=== PATIENT | female | born 1940 | race Caucasian/White ===

== ENCOUNTER 2016-09-26 11:57 | Inpatient (IN) | payer MEDICARE ==
[~2016-09-26] VITALS: Ht 157.5 cm; Wt 35.6 kg
[2016-09-26 12:10] VITALS: BP_SYST 143
[2016-09-26 13:13] LABS: BASOPHILS # (AUTO) 0.2 K/uL (0.0-0.2); BASOPHILS % (AUTO) 1.4 % (0.0-2.0); EOSINOPHILS % (AUTO) 0.1 % (0.0-4.0); HEMATOCRIT 27.4 % (36-48); HEMOGLOBIN 8.9 g/dL (12.0-16.0); LYMPHOCYTES # (AUTO) 0.6 K/uL (1.0-5.5); LYMPHOCYTES % (AUTO) 5.1 % (20.5-51.5); MEAN CORPUSCULAR HEMOGLOBIN 29 pg (27-31); MEAN CORPUSCULAR HGB CONC 33 % (32-36); MEAN CORPUSCULAR VOLUME 87 fL (79.0-98.0); MONOCYTES # (AUTO) 0.3 K/uL (0.0-1.0); MONOCYTES % (AUTO) 2.7 % (1.7-9.3); NEUTROPHILS # (AUTO) 10.8 K/uL (1.8-7.7); NEUTROPHILS % (AUTO) 90.7 % (40.0-70.0); RED BLOOD CELL COUNT(AUTO) 3.13 MIL/uL (4.2-6.2); RED CELL DISTRIBUTION WIDTH 17.2 % (9.0-15.0); WHITE BLOOD COUNT (AUTO) 11.9 K/uL (4.8-10.8)
[2016-09-26 13:23] LABS: INR 1.1 (0.8-1.2); PROTHROMBIN TIME 11.6 SECS (9.5-12.5)
[2016-09-26 13:30] LABS: PLATELET COUNT (AUTO) 464 K/uL (130-430)
[2016-09-26 13:32] LABS: ANION GAP 6 (5-15); CALCIUM 8.3 mg/dL (8.4-11.0); CHLORIDE 103 mmol/L (98-107); CREATININE 0.87 mg/dL (0.55-1.30); GLUCOSE 175 mg/dL (70-99); POTASSIUM 4.4 mmol/L (3.5-5.1); SODIUM SERUM 135 mmol/L (136-145); UREA NITROGEN, BLOOD 10 mg/dL (8-21)
[2016-09-26 13:37] LABS: ALANINE AMINOTRANSFERASE 16 U/L (12-78); ALBUMIN 1.9 g/dL (3.4-4.8); ASPARTATE AMINOTRANSFERASE 30 U/L (10-37); TOTAL BILIRUBIN 0.2 mg/dL (0.0-1.0); TOTAL PROTEIN, SERUM 7.4 g/dL (6.4-8.3)
[2016-09-26 14:48] LABS: BILIRUBIN,URINE NEGATIVE (NEGATIVE); BLOOD, URINE NEGATIVE (NEGATIVE); CLARITY/URINE CLEAR (CLEAR); COLOR,URINE YELLOW (YELLOW); GLUCOSE,URINE NEGATIVE (NEGATIVE); KETONES,URINE NEGATIVE (NEGATIVE); LEUKOCYTE ESTERASE ,URINE NEGATIVE (NEGATIVE); NITRITE, URINE NEGATIVE (NEGATIVE); PROTEIN URINE NEGATIVE (NEGATIVE)
[2016-09-26 14:55] LABS: BARBITURATE, URINE NEGATIVE (NEG <=200); BENZODIAZEPINE, URINE POSITIVE (NEG <=150); CANNABINOID, URINE NEGATIVE (NEG <=50); COCAINE, URINE NEGATIVE (NEG <=150); METHAMPHETAMINES SCREEN,URINE NEGATIVE (NEG <=500); OPIATE, URINE NEGATIVE (NEG <=100); PHENCYCLIDINE SCREEN,URINE NEGATIVE (NEG <=25); UR TRICYCLIC ANTIDEPRESSANTS NEGATIVE (NEG <=300); URINE AMPHETAMINE NEGATIVE (NEG <=500); URINE METHADONE NEGATIVE (NEG <=200); URINE OXYCODONE SCREEN NEGATIVE (NEG <=100); URINE PROPOXYPHENE SCREEN NEGATIVE (NEG <=300)
[2016-09-26] MEDS ORDERED: ASPIRIN 300 MG/SUPP.RECT SUPP RC ONE (16:00)
[2016-09-26] MEDS ORDERED: IOHEXOL 350 mgI/mL, 150 ML INFUS..BTL IV ONE (17:19)
[2016-09-26] MEDS ORDERED: ENOXAPARIN SODIUM 60 MG/0.6 ML SYRINGE ONE (19:54)
[2016-09-26] MEDS ORDERED: PIPERACILLIN/TAZO 4.5 GM in NS 100 ML IV ONE (20:15)
[2016-09-26] MEDS ORDERED: PIPERACILLIN/TAZOBACTAM 4.5 GM/VIAL (ZOSYN) IV ONE (20:49)
[2016-09-26] MEDS ORDERED: ENOXAPARIN SODIUM 60 MG/0.6 ML SYRINGE SUBCUT ONE (21:00)
[2016-09-26 21:48] LABS: BLOOD GAS BASE EXCESS -0.8 mmol/L (-3.0-3.0); BLOOD GAS PH 7.445 (7.350-7.450)
[2016-09-26 21:49] LABS: BLOOD GAS COHb% 0.5 % (0.5-1.5); BLOOD GAS HHB 4.1 % (0.0-6.0); BLOOD O2Hb% 94.9 % (94.0-97.0)
[2016-09-26 21:50] VITALS: BP_SYST 123
[2016-09-26] MEDS ORDERED: SIMV20TA2 PO (22:13)
[2016-09-26] MEDS ORDERED: TRAZ-123 PO (22:13)
[2016-09-26] MEDS ORDERED: MIRT30TA PO (22:14)
[2016-09-26 22:15] VITALS: BP_SYST 95
[2016-09-26] MEDS ORDERED: FERR-31 PO (22:21)
[2016-09-26] MEDS ORDERED: [UNRECOGNIZED DRUG - CODE] PO (22:21)
[2016-09-26] MEDS ORDERED: LISI40TA4 PO (22:23)
[2016-09-26] MEDS ORDERED: MULT-964 PO (22:23)
[2016-09-26] MEDS ORDERED: OMEP20TA20 PO (22:24)
[2016-09-26] MEDS ORDERED: ECO325 PO (22:26)
[2016-09-26] MEDS ORDERED: ATEN-166 PO (22:26)
[2016-09-26] MEDS ORDERED: CALC-226 PO (22:27)
[2016-09-26 23:00] VITALS: BP_SYST 104
[2016-09-26] MEDS ORDERED: MORPHINE 2 MG/ML INJ. SYRINGE IVP PRN (23:00)
[2016-09-26] MEDS ORDERED: ONDANSETRON HCL 4 MG/2 ML VIAL IVP PRN (23:00)
[2016-09-26] MEDS ORDERED: ACETAMINOPHEN 325 MG TABLET PO PRN (23:00)
[2016-09-26] MEDS ORDERED: ACETAMINOPHEN 650 MG SUPP.RECT RC PRN (23:00)
[2016-09-26] MEDS ORDERED: VANCOMYCIN HCL 1 GM/NS PREMIX 250 ML IV SCH (23:30)
[2016-09-26] MEDS ORDERED: LORazepam 2 MG/ML VIAL IVP PRN (23:30)
[2016-09-27] VITALS (19 sets, daily range): BP systolic 92–147
[2016-09-27] MEDS ORDERED: IPRATROPIUM/ALBUTEROL SULFATE 3 ML AMPUL.NEB INH PRN ×2
[2016-09-27] MEDS ORDERED: VANCOMYCIN HCL 1000 MG/VIAL IV ONE (00:33)
[2016-09-27] MEDS ORDERED: PIPERACILLIN/TAZOBACTAM 3.375 GM/VIAL (ZOSYN) IV ONE (00:33)
[2016-09-27] MEDS: D5LR 1,000 ML IV SCH ×3 (00:57→13:36)
[2016-09-27] MEDS: PANTOPRAZOLE SODIUM 40 MG/VIAL (PROTONIX) IVP SCH ×2 (01:08→09:58)
[2016-09-27] MEDS ORDERED: PANTOPRAZOLE SODIUM 40 MG/VIAL (PROTONIX) ONE (01:10)
[2016-09-27] MEDS ORDERED: IPRATROPIUM/ALBUTEROL SULFATE 3 ML AMPUL.NEB ONE (01:30)
[2016-09-27] MEDS: PIPERACILLIN/TAZO 3.375/DEX-IS 50 ML IV SCH ×4 (05:21→19:17)
[2016-09-27 07:00] LABS: HEMATOCRIT 28.6 % (36-48); HEMOGLOBIN 9.2 g/dL (12.0-16.0); MEAN CORPUSCULAR HEMOGLOBIN 29 pg (27-31); MEAN CORPUSCULAR HGB CONC 32 % (32-36); MEAN CORPUSCULAR VOLUME 88 fL (79.0-98.0); PLATELET COUNT (AUTO) 497 K/uL (130-430); RED BLOOD CELL COUNT(AUTO) 3.23 MIL/uL (4.2-6.2); RED CELL DISTRIBUTION WIDTH 17.5 % (9.0-15.0)
[2016-09-27 07:26] LABS: WHITE BLOOD COUNT (AUTO) 26.6 K/uL (4.8-10.8)
[2016-09-27 07:27] LABS: ALANINE AMINOTRANSFERASE 16 U/L (12-78); ALBUMIN 1.8 g/dL (3.4-4.8); ASPARTATE AMINOTRANSFERASE 22 U/L (10-37); CALCIUM 8.2 mg/dL (8.4-11.0); CHLORIDE 106 mmol/L (98-107); CHOLESTEROL 106 mg/dL (<200); CREATININE 0.94 mg/dL (0.55-1.30); FREE T4 (FREE THYROXINE) 0.9 ng/dL (0.6-1.6); GLUCOSE 182 mg/dL (70-99); HDL CHOLESTEROL 44 mg/dL (>55); LDL CHOLESTEROL 44 mg/dL (<100); POTASSIUM 4.7 mmol/L (3.5-5.1); SODIUM SERUM 134 mmol/L (136-145); THYROID STIMULATING HORMONE 3.01 uIu/mL (0.34-4.82); TOTAL BILIRUBIN 0.3 mg/dL (0.0-1.0); TOTAL PROTEIN, SERUM 7.1 g/dL (6.4-8.3); TRIGLYCERIDES 55 mg/dL (30-150); UREA NITROGEN, BLOOD 13 mg/dL (8-21)
[2016-09-27 07:43] LABS: ANION GAP < 3 (5-15)
[2016-09-27] MEDS: IPRATROPIUM/ALBUTEROL SULFATE 3 ML AMPUL.NEB INH SCH ×3 (07:45→19:41)
[2016-09-27 07:59] LABS: IRON (SERUM) 18 mcg/dL (37-145); TOTAL IRON BIND. CAPACITY 106 ug/dL (250-450)
[2016-09-27 08:13] LABS: BLOOD GAS PH 7.371 (7.350-7.450)
[2016-09-27 08:14] LABS: ABG TOTAL HEMOGLOBIN 11.8 G/dL (12.0-18.0); BLOOD GAS BASE EXCESS -1.2 mmol/L (-3.0-3.0); BLOOD GAS COHb% 0.5 % (0.5-1.5); BLOOD O2Hb% 98.4 % (94.0-97.0)
[2016-09-27 08:43] LABS: ATYPICAL LYMPHOCYTES % 0 % (0-0); BAND % (MANUAL) 26 % (0-6); BASOPHILS % (MANUAL) 0 % (0-2); EOSINOPHILS % (MANUAL) 0 % (0-7); LYMPHOCYTES % (MANUAL) 4 % (20-46); MONOCYTES % (MANUAL) 2 % (0-11)
[2016-09-27] MEDS ORDERED: ASPIRIN 325 MG TABLET (ECOTRIN) PO SCH (09:00)
[2016-09-27] MEDS ORDERED: ATENOLOL 25 MG TABLET(TENORMIN) PO SCH (09:00)
[2016-09-27] MEDS ORDERED: LISINOPRIL 20 MG TABLET PO SCH (09:00)
[2016-09-27] MEDS: GALANTAMINE HYDROBROMIDE 4 MG TABLET PO SCH ×2 (09:00→21:00)
[2016-09-27] MEDS ORDERED: CALCIUM CARBONATE/VITAMIN D3 1 TAB TABLET PO SCH (09:00)
[2016-09-27] MEDS ORDERED: SIMVASTATIN 20 MG TABLET PO SCH (09:00)
[2016-09-27] MEDS ORDERED: FERROUS SULFATE 325 MG TABLET.DR PO SCH (09:00)
[2016-09-27] MEDS ORDERED: MIRTAZAPINE 15 MG TABLET PO SCH (09:00)
[2016-09-27] MEDS: ENOXAPARIN SODIUM 60 MG/0.6 ML SYRINGE SUBCUT SCH ×2 (09:59→22:06)
[2016-09-27] MEDS ORDERED: traZODone HCL 50 MG TABLET (DESYREL) PO SCH (21:00)
[2016-09-28] MEDS ORDERED: BALSAM PERU/CASTOR OIL 60 GM OINT...G. TP SCH (09:00)
[2016-09-28] MEDS ORDERED: VANCOMYCIN HCL 500 MG in NS 100 ML IV SCH (21:00)
[2016-09-30 20:55] LABS: FOLATE (FOLIC ACID) 6.3 ng/mL (>3.0)
== END 2016-09-27 22:35 | disposition short-term general hospital (02) | DRG 871 ==
LOC: SED 11:57 → SIC 20:49 → STU 09-27 15:11
PROVIDERS: ADMIT Internal Medicine; ATTEND Internal Medicine
PROC: 5A09357 Assistance with Respiratory Ventilation, Less than 24 Consecutive Hours, Continuous Positive Airway Pressure (ICD-10-PCS; principal; 2016-09-27)
DX: A41.9 Sepsis, unspecified organism (principal); J96.00 Acute respiratory failure, unspecified whether with hypoxia or hypercapnia; E43 Unspecified severe protein-calorie malnutrition; I26.99 Other pulmonary embolism without acute cor pulmonale; J18.9 Pneumonia, unspecified organism; I69.351 Hemiplegia and hemiparesis following cerebral infarction affecting right dominant side; Z68.1 Body mass index [BMI] 19.9 or less, adult; E78.5 Hyperlipidemia, unspecified; M81.0 Age-related osteoporosis without current pathological fracture; D64.9 Anemia, unspecified; I11.9 Hypertensive heart disease without heart failure; G30.9 Alzheimer's disease, unspecified; F02.80 Dementia in other diseases classified elsewhere, unspecified severity, without behavioral disturbance, psychotic disturbance, mood disturbance, and anxiety; Z79.82 Long term (current) use of aspirin; Z79.899 Other long term (current) drug therapy; Z99.3 Dependence on wheelchair
CPT/HCPCS: 36415; 36600; 70450-TC; 71010; 71275; 80053; 80061; 80307; 81003; 82607; 82746; 82803-TC; 83540-TC; 83550-TC; 83735-TC; 84439; 84443-TC; 84484; 85007; 85025; 85027; 85610-TC; 85730-TC; 86886; 86900; 86901; 87040-TC; 87070-TC; 87081; 94640; 94660; 94760; 96365; 96372; 99285; A6209; C9113; J1650; J2543; J3370; J7050; J7060; J7120; Q9967